=== PATIENT | female | born 1950 | race Native Hawaiian/Other Pacific Islander ===

== ENCOUNTER 2016-05-22 10:29 | Outpatient (CLI) | payer OTHER ==
[~2016-05-22 10:29] MED LIST: ALPR0.2566 PO; DICL75TA4 PO; GLIM4TAB PO; GRALISE600 MG PO; LEVO0.0218 PO; MUCINEX D1 TA1 PO; OXYBUTYNIN15 MG PO; TIZA4TAB5 PO; VITAMIN D5000 UNIT PO
[2016-05-22 11:04] LABS: PLATELET COUNT 124 K/uL (152-353)
[2016-05-22 11:47] LABS: POTASSIUM 4.1 mmol/L (3.6-5.2); SODIUM 128 mmol/L (136-145)
== END 2016-05-22 23:02 | disposition home or self-care (01) ==
LOC: LABW 10:29
PROVIDERS: Nurse Practitioner
DX: I10 Essential (primary) hypertension (principal); E11.9 Type 2 diabetes mellitus without complications; E55.9 Vitamin D deficiency, unspecified; E78.00 Pure hypercholesterolemia, unspecified; E03.8 Other specified hypothyroidism
CPT/HCPCS: 36415; 80053; 80061; 82043; 82306; 82570; 83036; 84439; 84443; 85027

== ENCOUNTER 2016-08-21 13:59 | Outpatient (CLI) | payer OTHER ==
[2016-08-21 15:17] LABS: PLATELET COUNT 175 K/uL (152-353)
[2016-08-21 16:31] LABS: POTASSIUM 3.9 mmol/L (3.6-5.2); SODIUM 138 mmol/L (136-145)
== END 2016-08-21 19:25 | disposition home or self-care (01) ==
LOC: LAB 13:59
PROVIDERS: Nurse Practitioner Family
DX: E11.9 Type 2 diabetes mellitus without complications (principal); E78.4 Other hyperlipidemia; E55.9 Vitamin D deficiency, unspecified; E03.8 Other specified hypothyroidism
CPT/HCPCS: 80053; 80061; 82306; 82607; 83036; 84439; 84443; 85027

== ENCOUNTER 2016-08-22 08:20 | Observation (INO) | payer OTHER ==
[~2016-08-22] VITALS: Ht 165.1 cm; Wt 91.4 kg
[2016-08-22] VITALS (7 sets, daily range): BP systolic 147–220; BP diastolic 51–185; TEMP 97.8–99.9; Ht 165.1 cm; Wt 91.4 kg
[2016-08-22 08:54] LABS: PLATELET COUNT 196 K/uL (152-353)
[2016-08-22 09:04] LABS: POTASSIUM 3.8 mmol/L (3.6-5.2)
[2016-08-23] VITALS: BP 187/73; TEMP 100.1
[2016-08-23 04:00] VITALS: BP 161/70; TEMP 99.2
[2016-08-23 04:09] LABS: PLATELET COUNT 212 K/uL (152-353)
[2016-08-23 08:00] VITALS: BP 153/69; TEMP 98.6
[2016-08-23 12:00] VITALS: BP 123/53; TEMP 99.9
[2016-08-23] MEDS ORDERED: BUSPIRONE15 MG PO (12:39)
[2016-08-23] MEDS ORDERED: LINZESS290 MCG PO (12:39)
[2016-08-23] MEDS ORDERED: LYRICA150 MG PO (12:39)
[2016-08-23] MEDS ORDERED: OMEPRAZOLE40 MG PO (12:41)
[2016-08-23] MEDS ORDERED: AMLO2.5T PO (12:41)
[2016-08-23] MEDS ORDERED: DONE5TAB PO (12:42)
[2016-08-23] MEDS ORDERED: CELEXA40 MG PO (12:42)
[2016-08-23 16:06] VITALS: BP 157/61; TEMP 99.2
== END 2016-08-23 17:45 | disposition home or self-care (01) ==
LOC: ED 08:20 → MED/SURG 09:45
PROVIDERS: Emergency Medicine
DX: J22 Unspecified acute lower respiratory infection (principal); J32.9 Chronic sinusitis, unspecified; E11.9 Type 2 diabetes mellitus without complications; E01.0 Iodine-deficiency related diffuse (endemic) goiter; R06.02 Shortness of breath; E03.8 Other specified hypothyroidism; I10 Essential (primary) hypertension; C73 Malignant neoplasm of thyroid gland; E78.4 Other hyperlipidemia; E55.9 Vitamin D deficiency, unspecified
CPT/HCPCS: 36415; 36600; 80048; 80053; 80061; 81000; 82306; 82550; 82607; 82805; 82947; 82948; 83036; 83735; 83880; 84439; 84443; 84484; 85027; 85379; 93005; 94760; 96367; 96372; 96374; 96375; 99220; 99284; G0378; J1650; J1940; J3490

== ENCOUNTER 2016-09-04 10:09 | Outpatient (CLI) | payer OTHER ==
[~2016-09-04 10:09] MED LIST changes: +AMLO2.5T PO; +BUSPIRONE15 MG PO; +CELEXA40 MG PO; +DONE5TAB PO; +LINZESS290 MCG PO; +LYRICA150 MG PO; +OMEPRAZOLE40 MG PO
[2016-09-04 10:35] LABS: PLATELET COUNT 291 K/uL (152-353)
== END 2016-09-04 19:29 | disposition home or self-care (01) ==
LOC: LABW 10:09
PROVIDERS: Surgery
DX: Z01.810 Encounter for preprocedural cardiovascular examination (principal); Z01.811 Encounter for preprocedural respiratory examination; Z01.812 Encounter for preprocedural laboratory examination; Z79.01 Long term (current) use of anticoagulants; C73 Malignant neoplasm of thyroid gland
CPT/HCPCS: 36415; 80053; 85027; 93005

== ENCOUNTER 2016-12-29 11:54 | Observation (INO) | payer OTHER ==
[~2016-12-29] VITALS: Ht 167.6 cm; Wt 92.5 kg
[2016-12-29 13:31] LABS: PLATELET COUNT 123 K/uL (152-353)
[2016-12-29 13:49] VITALS: BP 135/60; TEMP 97.9; Ht 167.6 cm; Wt 92.5 kg
[2016-12-29 14:08] LABS: POTASSIUM 3.3 mmol/L (3.6-5.2)
[2016-12-29 16:00] VITALS: BP 110/56; TEMP 98.2
[2016-12-29] MEDS ORDERED: LORTAB 10-325 M1 TAB PO (18:55)
[2016-12-29] MEDS ORDERED: TRICOR145 M1 PO (18:56)
[2016-12-29] MEDS ORDERED: FLONASE AL50 MCG/ACT (18:57)
[2016-12-29] MEDS ORDERED: LEVO-T100 MCG PO (18:58)
[2016-12-29] MEDS ORDERED: INSU100I2 SC (19:00)
[2016-12-29] MEDS ORDERED: METFORMIN HCL500 M1 PO (19:01)
[2016-12-29 20:00] VITALS: BP 148/61; TEMP 98.1
[2016-12-30] VITALS (7 sets, daily range): BP systolic 110–180; BP diastolic 53–86; TEMP 97.7–98.4
[2016-12-30 05:44] LABS: PLATELET COUNT 122 K/uL (152-353); POTASSIUM 3.1 mmol/L (3.6-5.2)
[2016-12-31 04:00] VITALS: BP 167/74; TEMP 98.2
[2016-12-31 07:10] LABS: PLATELET COUNT 137 K/uL (152-353)
[2016-12-31 07:17] LABS: POTASSIUM 3.9 mmol/L (3.6-5.2)
[2016-12-31 08:00] VITALS: BP 153/71; TEMP 98.2
[2016-12-31 12:00] VITALS: BP 165/71; TEMP 98.2
[2016-12-31 16:00] VITALS: BP 160/71; TEMP 98
== END 2016-12-31 18:20 | disposition home or self-care (01) ==
LOC: MED/SURG 11:54
PROVIDERS: ADMIT Family Medicine
DX: J44.0 Chronic obstructive pulmonary disease with (acute) lower respiratory infection (principal); J18.8 Other pneumonia, unspecified organism; J44.1 Chronic obstructive pulmonary disease with (acute) exacerbation; E86.0 Dehydration; E11.9 Type 2 diabetes mellitus without complications; I10 Essential (primary) hypertension; E03.8 Other specified hypothyroidism; R82.99 Other abnormal findings in urine
CPT/HCPCS: 36415; 36600; 74022; 80053; 81000; 82550; 82553; 82805; 82948; 83735; 84100; 84484; 85027; 87040; 87086; 87088; 93005; 94640; 94664; 94668; 94760; 96360; 96361; 96367; 96372; 96374; 96375; 99220; G0378; G0379; J2930

== ENCOUNTER 2017-03-23 16:43 | Outpatient (CLI) | payer OTHER ==
[~2017-03-23 16:43] MED LIST changes: +FLONASE AL50 MCG/ACT; +INSU100I2 SC; +LEVO-T100 MCG PO; +LORTAB 10-325 M1 TAB PO; +METFORMIN HCL500 M1 PO; +TRICOR145 M1 PO
== END 2017-03-23 17:45 | disposition home or self-care (01) ==
LOC: RAD 16:43
DX: M79.89 Other specified soft tissue disorders (principal); S50.11XA Contusion of right forearm, initial encounter

== ENCOUNTER 2017-06-07 11:25 | Outpatient (CLI) | payer OTHER | END 2017-06-07 22:22 | disposition home or self-care (01) | LOC: LABW 11:25 | DX: C73 Malignant neoplasm of thyroid gland (principal) | CPT/HCPCS: 36415; 84439; 84443; 84481; 86800 ==

== ENCOUNTER 2017-07-29 16:08 | Outpatient (CLI) | payer OTHER ==
[2017-07-29] MEDS ORDERED: FURO40TA93 PO (17:41)
[2017-07-29] MEDS ORDERED: ELAVIL25 MG PO (17:42)
[2017-07-29] MEDS ORDERED: BENZONATATE100 MG PO (17:43)
[2017-07-29] MEDS ORDERED: DICL75TA4 PO (17:44)
[2017-07-29] MEDS ORDERED: ASPIR-8181 MG PO (17:45)
[2017-07-29] MEDS ORDERED: MONTELUKAST SOD10 MG PO (17:45)
== END 2017-07-29 16:10 | disposition home or self-care (01) ==
LOC: AMB 16:08
DX: T17.228A Food in pharynx causing other injury, initial encounter (principal); X58.XXXA Exposure to other specified factors, initial encounter; Y93.89 Activity, other specified; Y92.89 Other specified places as the place of occurrence of the external cause; Y99.8 Other external cause status
CPT/HCPCS: A0425; A0427

== ENCOUNTER 2017-07-29 16:15 | Emergency (ER) | payer OTHER ==
[~2017-07-29] VITALS: Ht 165.1 cm; Wt 90.7 kg
[2017-07-29 17:06] LABS: PLATELET COUNT 225 K/uL (152-353)
[2017-07-29 17:14] LABS: POTASSIUM 3.3 mmol/L (3.6-5.2)
[2017-07-29] MEDS ORDERED: FURO40TA93 PO (17:41)
[2017-07-29] MEDS ORDERED: ELAVIL25 MG PO (17:42)
[2017-07-29] MEDS ORDERED: BENZONATATE100 MG PO (17:43)
[2017-07-29] MEDS ORDERED: DICL75TA4 PO (17:44)
[2017-07-29] MEDS ORDERED: ASPIR-8181 MG PO (17:45)
[2017-07-29] MEDS ORDERED: MONTELUKAST SOD10 MG PO (17:45)
[2017-07-29 18:18] VITALS: BP 150/79; TEMP 98.4
== END 2017-07-29 18:21 | disposition home or self-care (01) ==
LOC: ED 16:15
DX: T17.928A Food in respiratory tract, part unspecified causing other injury, initial encounter (principal); I45.81 Long QT syndrome
CPT/HCPCS: 36600; 80053; 82805; 84484; 85027; 93005; 99285

== ENCOUNTER 2017-10-30 14:09 | Outpatient (CLI) | payer OTHER ==
[~2017-10-30 14:09] MED LIST changes: +ASPIR-8181 MG PO; +BENZONATATE100 MG PO; +ELAVIL25 MG PO; +FURO40TA93 PO; +MONTELUKAST SOD10 MG PO
== END 2017-10-30 19:36 | disposition home or self-care (01) ==
LOC: LABW 14:09
DX: C73 Malignant neoplasm of thyroid gland (principal)
CPT/HCPCS: 36415; 84439; 84443; 84481; 86800

== ENCOUNTER 2018-07-18 11:33 | Outpatient (CLI) | payer OTHER | END 2018-07-18 11:36 | disposition short-term general hospital (02) | LOC: AMB 11:33 | DX: M54.2 Cervicalgia (principal); R07.89 Other chest pain; V89.2XXA Person injured in unspecified motor-vehicle accident, traffic, initial encounter | CPT/HCPCS: A0425; A0427 ==

== ENCOUNTER 2018-07-18 11:42 | Emergency (ER) | payer OTHER ==
[~2018-07-18] VITALS: Ht 167.6 cm; Wt 90.7 kg
[2018-07-18 11:42] VITALS: TEMP 97.2
[2018-07-18 12:41] LABS: POTASSIUM 4.3 mmol/L (3.6-5.2); SODIUM 132 mmol/L (136-145)
[2018-07-18 13:11] LABS: PLATELET COUNT 190 K/uL (152-353)
[2018-07-18 17:48] VITALS: BP 132/77
== END 2018-07-18 17:48 | disposition home or self-care (01) ==
LOC: ED 11:42
PROVIDERS: Emergency Medicine
DX: S20.212A Contusion of left front wall of thorax, initial encounter (principal); S70.02XA Contusion of left hip, initial encounter; V43.52XA Car driver injured in collision with other type car in traffic accident, initial encounter; Y93.89 Activity, other specified; Y92.89 Other specified places as the place of occurrence of the external cause; S00.83XA Contusion of other part of head, initial encounter; I67.89 Other cerebrovascular disease; R10.9 Unspecified abdominal pain
CPT/HCPCS: 80053; 82550; 82553; 84484; 85027; 93005; 96374; 99284; J1885; Q9963

== ENCOUNTER 2018-07-31 02:05 | Outpatient (CLI) | payer OTHER | END 2018-07-31 02:08 | disposition short-term general hospital (02) | LOC: AMB 02:05 | DX: M25.511 Pain in right shoulder (principal) | CPT/HCPCS: A0425; A0429 ==

== ENCOUNTER 2018-08-13 16:17 | Emergency (ER) | payer OTHER ==
[~2018-08-13] VITALS: Ht 167.6 cm; Wt 81.6 kg
[2018-08-13 16:23] VITALS: TEMP 99.1
[2018-08-13 16:59] LABS: PLATELET COUNT 157 K/uL (152-353)
[2018-08-13 17:07] LABS: POTASSIUM 4.1 mmol/L (3.6-5.2); SODIUM 136 mmol/L (136-145)
[2018-08-13 18:30] VITALS: BP 177/86
== END 2018-08-13 19:03 | disposition home or self-care (01) ==
LOC: ED 16:17
PROVIDERS: Family Medicine
DX: R07.89 Other chest pain (principal)
CPT/HCPCS: 36415; 80053; 82550; 84484; 85027; 85379; 93005; 96374; 99284; J1885

== ENCOUNTER 2018-09-29 22:48 | Outpatient (CLI) | payer OTHER | END 2018-09-29 23:08 | disposition short-term general hospital (02) | LOC: AMB 22:48 | DX: R10.84 Generalized abdominal pain (principal) | CPT/HCPCS: A0425; A0427 ==

== ENCOUNTER 2018-10-04 22:39 | Outpatient (CLI) | payer OTHER ==
[2018-10-04] MEDS ORDERED: METF500T PO (23:27)
[2018-10-04] MEDS ORDERED: TIZANIDINE HYDRO2 MG PO (23:28)
[2018-10-04] MEDS ORDERED: CARAFATE1 GM PO (23:29)
[2018-10-04] MEDS ORDERED: FURO40TA93 PO (23:30)
[2018-10-04] MEDS ORDERED: TIROSINT125 MCG PO (23:30)
[2018-10-04] MEDS ORDERED: SOD CHLORIDE1 GM PO (23:31)
[2018-10-04] MEDS ORDERED: METRONIDAZOL500 MG PO (23:32)
[2018-10-04] MEDS ORDERED: GLIP10TA55 PO (23:32)
[2018-10-04] MEDS ORDERED: GABA300C2 PO (23:33)
== END 2018-10-04 22:42 | disposition short-term general hospital (02) ==
LOC: AMB 22:39
DX: R10.12 Left upper quadrant pain (principal)
CPT/HCPCS: A0425; A0429

== ENCOUNTER 2018-11-20 18:17 | Outpatient (CLI) | payer OTHER ==
[~2018-11-20 18:17] MED LIST changes: +CARAFATE1 GM PO; +GABA300C2 PO; +GLIP10TA55 PO; +METF500T PO; +METRONIDAZOL500 MG PO; +SOD CHLORIDE1 GM PO; +TIROSINT125 MCG PO; +TIZANIDINE HYDRO2 MG PO
== END 2018-11-20 19:56 | disposition home or self-care (01) ==
LOC: RAD 18:17
DX: R10.32 Left lower quadrant pain (principal)

== ENCOUNTER 2019-03-25 09:31 | Day surgery (SDC) | payer OTHER ==
[2019-03-25 10:15] LABS: PLATELET COUNT 164 K/uL (152-353)
[2019-03-25 13:08] LABS: PLATELET COUNT 166 K/uL (152-353)
== END 2019-03-25 13:50 | disposition home or self-care (01) ==
LOC: OR 09:31
PROVIDERS: Pain Medicine Interventional Pain Medicine
PROC: 3E0R33Z Introduction of Anti-inflammatory into Spinal Canal, Percutaneous Approach (ICD-10-PCS; principal; 2019-03-25)
PROC: B01BYZZ Fluoroscopy of Spinal Cord using Other Contrast (ICD-10-PCS; 2019-03-25)
DX: M51.16 Intervertebral disc disorders with radiculopathy, lumbar region (principal); R41.82 Altered mental status, unspecified
CPT/HCPCS: 80053; 85027; 93005; J1020

== ENCOUNTER 2019-04-29 13:59 | Outpatient (CLI) | payer OTHER | END 2019-04-29 14:01 | disposition short-term general hospital (02) | LOC: AMB 13:59 | DX: M25.552 Pain in left hip (principal); M25.551 Pain in right hip; M79.605 Pain in left leg; M79.604 Pain in right leg | CPT/HCPCS: A0425; A0429 ==

== ENCOUNTER 2019-04-29 14:05 | Emergency (ER) | payer OTHER ==
[~2019-04-29] VITALS: Ht 170.2 cm; Wt 77.1 kg
[2019-04-29 14:55] LABS: PLATELET COUNT 185 K/uL (152-353)
[2019-04-29 15:08] LABS: POTASSIUM 3.5 mmol/L (3.6-5.2)
[2019-04-29 18:35] VITALS: BP 155/62; TEMP 98.1
== END 2019-04-29 18:35 | disposition home or self-care (01) ==
LOC: ED 14:07
PROVIDERS: Family Medicine
DX: M51.36 Other intervertebral disc degeneration, lumbar region (principal); E87.6 Hypokalemia; M79.604 Pain in right leg
CPT/HCPCS: 80053; 81000; 85027; 96372; 99283; J1885; J2175

== ENCOUNTER 2019-05-22 14:08 | Outpatient (CLI) | payer OTHER | END 2019-05-22 19:37 | disposition home or self-care (01) | LOC: US 14:08 | DX: N28.1 Cyst of kidney, acquired (principal) ==

== ENCOUNTER 2019-05-28 09:39 | Outpatient (CLI) | payer OTHER | END 2019-05-28 09:41 | disposition short-term general hospital (02) | LOC: AMB 09:39 | DX: M54.5 Low back pain (principal); G89.29 Other chronic pain | CPT/HCPCS: A0425; A0429 ==

== ENCOUNTER 2019-05-28 09:44 | Emergency (ER) | payer OTHER ==
[~2019-05-28] VITALS: Ht 170.2 cm; Wt 90.7 kg
[2019-05-28 09:45] VITALS: TEMP 97
[2019-05-28 11:21] VITALS: BP 156/76
== END 2019-05-28 12:37 | disposition home or self-care (01) ==
LOC: ED 09:44
DX: M54.5 Low back pain (principal); G89.29 Other chronic pain
CPT/HCPCS: 96374; 96375; 99284; J1885; J2360

== ENCOUNTER 2020-09-07 12:34 | Outpatient (CLI) | payer OTHER | END 2020-09-07 22:19 | disposition home or self-care (01) | LOC: RAD 12:34 | PROVIDERS: ATTEND Nurse Practitioner Family | DX: M79.641 Pain in right hand (principal); M79.642 Pain in left hand ==

== ENCOUNTER 2020-11-16 12:00 | Outpatient (CLI) | payer OTHER | END 2020-11-16 19:26 | disposition home or self-care (01) | LOC: LAB 12:00 | PROVIDERS: ATTEND Nurse Practitioner Family | DX: R19.7 Diarrhea, unspecified (principal) | CPT/HCPCS: 83630; 87015; 87045; 87324; 87328; 87329; 87449; 87899 ==

== ENCOUNTER 2020-11-16 14:46 | Outpatient (CLI) | payer OTHER | END 2020-11-16 22:43 | disposition home or self-care (01) | LOC: CT 14:46 | PROVIDERS: ATTEND Nurse Practitioner Family | DX: R10.32 Left lower quadrant pain (principal) | CPT/HCPCS: 36415; 82565; 84520; Q9963 ==

== ENCOUNTER 2021-05-21 14:55 | Inpatient (IN) | payer OTHER ==
[2021-05-21] VITALS (8 sets, daily range): BP systolic 99–130; BP diastolic 46–79; TEMP 97.1–98.4; Ht 167.6 cm; Wt 83.0 kg
[~2021-05-21] VITALS: Ht 167.6 cm; Wt 83.0 kg
[2021-05-21 15:50] LABS: PLATELET COUNT 157 K/uL (152-353)
[2021-05-21 16:00] LABS: POTASSIUM 3.4 mmol/L (3.6-5.2)
[2021-05-21 21:47] LABS: POTASSIUM 3.3 mmol/L (3.6-5.2)
[2021-05-22 02:58] LABS: PLATELET COUNT 113 K/uL (152-353)
[2021-05-22 03:04] LABS: POTASSIUM 2.3 mmol/L (3.6-5.2)
[2021-05-22 04:22] VITALS: BP 126/69; TEMP 97.6
[2021-05-22 08:00] VITALS: BP 144/69; TEMP 98.9
[2021-05-22 09:36] LABS: POTASSIUM 3.3 mmol/L (3.6-5.2)
[2021-05-22 12:00] VITALS: BP 137/69; TEMP 97.5
[2021-05-22 16:00] VITALS: BP 170/85; TEMP 97.9
[2021-05-22 16:03] LABS: POTASSIUM 3.6 mmol/L (3.6-5.2)
[2021-05-22 20:00] VITALS: BP 155/70; TEMP 97.5
[2021-05-22 23:56] VITALS: BP 118/53; TEMP 98.3
[2021-05-23 04:00] VITALS: BP 134/67; TEMP 98.3
[2021-05-23 07:25] LABS: PLATELET COUNT 78 K/uL (152-353)
[2021-05-23 07:47] LABS: POTASSIUM 3.1 mmol/L (3.6-5.2)
[2021-05-23 08:00] VITALS: BP 142/69; TEMP 97.7
[2021-05-23 12:00] VITALS: BP 138/60; TEMP 97.6
[2021-05-23 16:00] VITALS: BP 134/72; TEMP 98.1
[2021-05-23 20:00] VITALS: BP 178/75; TEMP 98.6
[2021-05-24] VITALS: BP 154/74; TEMP 97.8
[2021-05-24 04:00] VITALS: BP 159/63; TEMP 98.3
[2021-05-24 08:00] VITALS: BP 153/74; TEMP 97.8
[2021-05-24 12:00] VITALS: BP 179/76; TEMP 97.5
[2021-05-24 16:00] VITALS: BP 159/63; TEMP 97.4
[2021-05-24 20:00] VITALS: BP 172/60; TEMP 97.7
[2021-05-25] VITALS: BP 154/60; TEMP 98.4
[2021-05-25 04:00] VITALS: BP 136/67; TEMP 98
[2021-05-25 08:00] VITALS: BP 156/90; TEMP 98
[2021-05-25 12:00] VITALS: BP 148/57; TEMP 97.9
[2021-05-25] MEDS ORDERED: AMLODIPINE BESYLATE PO (12:20)
[2021-05-25] MEDS ORDERED: LIPITOR40 MG PO (12:26)
[2021-05-25] MEDS ORDERED: REMERON30 MG PO (12:27)
[2021-05-25] MEDS ORDERED: ALBU90AE13 INH (12:28)
[2021-05-25] MEDS ORDERED: FAMOTIDINE40 MG PO (12:28)
[2021-05-25] MEDS ORDERED: HYDR200T3 PO (12:29)
[2021-05-25] MEDS ORDERED: CYCLOBENZAPRINE5 MG PO (12:34)
[2021-05-25] MEDS ORDERED: FLONASE AL50 MCG/ACT NAS (12:34)
[2021-05-25] MEDS ORDERED: PRED20TA27 PO (12:43)
[2021-05-25 16:00] VITALS: BP 183/80; TEMP 98
[2021-05-25 20:00] VITALS: BP 179/81; TEMP 98.3
[2021-05-26] VITALS: BP 149/58; TEMP 97.9
[2021-05-26 04:00] VITALS: BP 151/79; TEMP 98
[2021-05-26 08:00] VITALS: BP 157/79; TEMP 97.7
[2021-05-26 12:00] VITALS: BP 166/77; TEMP 97.3
[2021-05-26 16:00] VITALS: BP 162/74; TEMP 98.2
[2021-05-26 20:00] VITALS: BP 170/85; TEMP 98.3
[2021-05-27] VITALS: BP 147/68; TEMP 97.8
[2021-05-27 04:00] VITALS: BP 122/49; TEMP 98.7
[2021-05-27 04:38] LABS: PLATELET COUNT 99 K/uL (152-353)
[2021-05-27 05:37] LABS: POTASSIUM 2.8 mmol/L (3.6-5.2)
[2021-05-27 08:00] VITALS: BP 136/71; TEMP 97.8
[2021-05-27 12:00] VITALS: BP 128/75; TEMP 98.4
[2021-05-27 16:00] VITALS: BP 130/74; TEMP 98.6
[2021-05-27 20:00] VITALS: BP 124/62; TEMP 97.5
[2021-05-28 00:03] VITALS: BP 118/63; TEMP 97.7
[2021-05-28 04:00] VITALS: BP 123/64; TEMP 97.8
[2021-05-28 05:07] LABS: PLATELET COUNT 104 K/uL (152-353)
[2021-05-28 05:35] LABS: POTASSIUM 3.2 mmol/L (3.6-5.2)
[2021-05-28 08:00] VITALS: BP 110/61; TEMP 97.8
[2021-05-28 12:00] VITALS: BP 127/65; TEMP 98.7
== END 2021-05-28 15:00 | disposition home or self-care (01) | DRG 689 ==
LOC: ED 14:55 → MED/SURG 18:48
PROVIDERS: Family Medicine; ADMIT Internal Medicine Endocrinology, Diabetes & Metabolism; ATTEND Internal Medicine Endocrinology, Diabetes & Metabolism
DX: N30.00 Acute cystitis without hematuria (principal); U07.1 COVID-19; E87.1 Hypo-osmolality and hyponatremia; B96.20 Unspecified Escherichia coli [E. coli] as the cause of diseases classified elsewhere; E03.8 Other specified hypothyroidism; J44.9 Chronic obstructive pulmonary disease, unspecified; E66.8 Other obesity; I11.0 Hypertensive heart disease with heart failure; I50.9 Heart failure, unspecified; E78.49 Other hyperlipidemia; E11.40 Type 2 diabetes mellitus with diabetic neuropathy, unspecified; D50.8 Other iron deficiency anemias; E11.65 Type 2 diabetes mellitus with hyperglycemia; E87.8 Other disorders of electrolyte and fluid balance, not elsewhere classified; R41.0 Disorientation, unspecified
CPT/HCPCS: 36415; 80048; 80053; 81000; 82150; 82550; 82948; 83690; 83735; 84100; 84484; 85027; 87077; 87086; 87088; 87186; 87635; 96360; 96361; 96365; 96367; 96372; 96375; 99284; J1335; J1650; J1815; J3475; J3480; U0003

== ENCOUNTER 2021-11-16 08:09 | Outpatient (CLI) | payer OTHER ==
[~2021-11-16 08:09] MED LIST changes: +ALBU90AE13 INH; +AMLODIPINE BESYLATE PO; +CYCLOBENZAPRINE5 MG PO; +FAMOTIDINE40 MG PO; +FLONASE AL50 MCG/ACT NAS; +HYDR200T3 PO; +LIPITOR40 MG PO; +PRED20TA27 PO; +REMERON30 MG PO
== END 2021-11-16 19:20 | disposition home or self-care (01) ==
LOC: US 08:09
PROVIDERS: ATTEND Nurse Practitioner Family
DX: C73 Malignant neoplasm of thyroid gland (principal); E83.51 Hypocalcemia; R22.9 Localized swelling, mass and lump, unspecified; N95.8 Other specified menopausal and perimenopausal disorders

== ENCOUNTER 2022-02-01 12:25 | Outpatient (CLI) | payer OTHER ==
[2022-02-01 13:05] LABS: PLATELET COUNT 169 K/uL (152-353)
[2022-02-01 13:32] LABS: POTASSIUM 4.4 mmol/L (3.6-5.2)
== END 2022-02-01 18:59 | disposition home or self-care (01) ==
LOC: CT 12:25
PROVIDERS: ATTEND Nurse Practitioner Family
DX: R10.31 Right lower quadrant pain (principal); R10.32 Left lower quadrant pain
CPT/HCPCS: 36415; 80053; 82272; 83630; 85027; 87015; 87045; 87324; 87328; 87329; 87449; 87899; Q9963

== ENCOUNTER 2022-05-19 15:19 | Emergency (ER) | payer OTHER ==
[~2022-05-19] VITALS: Ht 167.6 cm; Wt 77.1 kg
[2022-05-19 15:23] VITALS: TEMP 99.1
[2022-05-19 16:44] LABS: PLATELET COUNT 155 K/uL (152-353)
[2022-05-19 16:56] LABS: PARTIAL THROMBOPLASTIN TIME 24.4 SECONDS (24.5-33.6)
[2022-05-19 16:59] LABS: POTASSIUM 3.5 mmol/L (3.6-5.2)
[2022-05-19 19:47] VITALS: BP 141/92
== END 2022-05-19 19:55 | disposition home or self-care (01) ==
LOC: ED 15:19
PROVIDERS: Emergency Medicine
DX: E86.0 Dehydration (principal); E11.65 Type 2 diabetes mellitus with hyperglycemia; Z79.84 Long term (current) use of oral hypoglycemic drugs; Z51.81 Encounter for therapeutic drug level monitoring
CPT/HCPCS: 80053; 81002; 83690; 83880; 84484; 85027; 85610; 85730; 93005; 96361; 96374; 96375; 99284; J2270; J2405